=== PATIENT | male | born 1960 | race Caucasian/White ===

== ENCOUNTER 2016-10-31 12:18 | Emergency (ER) | payer OTHER, MEDICAID ==
[~2016-10-31] VITALS: Ht 188 cm; Wt 111.1 kg
[~2016-10-31 12:18] MED LIST: ACETTAB85 PO; ASPI81TA27 PO; DOCU150L3 PO; RANO500T2 PO; ROSU10TA16 PO
[2016-10-31 12:47] VITALS: BP 185/96
== END 2016-10-31 13:38 | disposition home or self-care (01) ==
LOC: ER 12:33
DX: Z46.6 Encounter for fitting and adjustment of urinary device (principal); C62.90 Malignant neoplasm of unspecified testis, unspecified whether descended or undescended; E11.622 Type 2 diabetes mellitus with other skin ulcer; L89.93 Pressure ulcer of unspecified site, stage 3; F12.10 Cannabis abuse, uncomplicated; Z88.1 Allergy status to other antibiotic agents; Z88.0 Allergy status to penicillin; Z88.6 Allergy status to analgesic agent

== ENCOUNTER 2017-06-20 19:47 | Emergency (ER) | payer OTHER, MEDICAID ==
[~2017-06-20] VITALS: Ht 188 cm; Wt 113.4 kg
[2017-06-20 20:15] VITALS: BP 133/79
[2017-06-20 20:45] LABS: Basophils # (auto) 0 uL; Basophils % (auto) 0.1 % (0.0-2.0); CONDITION Y; Eosinophils # (auto) 0.2 uL; Hematocrit 48.9 % (41.0-53.0); Hemoglobin 16.6 g/dL (13.5-17.5); Lymphocytes # (auto) 1.4 uL; Lymphocytes % (auto) 8.1 % (10.0-50.0); Mean Corpuscular Hgb Conc. 33.9 g/dL (32.0-36.0); Mean Corpuscular Volume 91.4 fL (80.0-100.0); Mean Platelet Volume 7.8 fL (6.9-10.8); Monocytes # (auto) 0.5 uL; Neutrophils # (auto) 15.3 uL; Neutrophils % (auto) 87.8 % (37.0-80.0); Platelet Count (auto) 298 10^3/uL (140-450); Red Cell Distribution Width 14.9 % (11.8-14.3); White Blood Cell 17.5 10^3/uL (4.4-10.8)
[2017-06-20 21:07] LABS: Albumin 3.4 g/dL (3.4-5.0); BUN/Creatinine Ratio 13.2; Bilirubin, Total 0.4 mg/dL (0.2-1.0); Calcium 9.2 mg/dL (8.5-10.1); Potassium 4.1 mmol/L (3.5-5.1); Total Protein 8.6 g/dL (6.4-8.2)
[2017-06-21] MEDS ORDERED: GABA600T PO (23:52)
[2017-06-21] MEDS ORDERED: PERCOT PO (23:52)
== END 2017-06-21 06:39 | disposition left against medical advice (07) ==
LOC: ER 19:59
DX: E11.621 Type 2 diabetes mellitus with foot ulcer (principal); Z53.21 Procedure and treatment not carried out due to patient leaving prior to being seen by health care provider
CPT/HCPCS: 36415; 73630; 80053; 85025

== ENCOUNTER 2018-01-23 23:18 | Emergency (ER) | payer OTHER, MEDICAID ==
[~2018-01-23] VITALS: Ht 188 cm; Wt 116.1 kg
[~2018-01-23 23:18] MED LIST changes: -ACETTAB85 PO; +GABA600T PO; +METF-370 PO; +PERCOT PO; -RANO500T2 PO
[2018-01-24 04:00] VITALS: BP 132/78
== END 2018-01-24 06:05 | disposition home or self-care (01) ==
LOC: ER 23:18
DX: R10.9 Unspecified abdominal pain (principal); Z46.6 Encounter for fitting and adjustment of urinary device; Z85.47 Personal history of malignant neoplasm of testis; Z88.1 Allergy status to other antibiotic agents; Z88.0 Allergy status to penicillin
CPT/HCPCS: 51702

== ENCOUNTER 2018-08-29 13:20 | Inpatient (IN) | payer OTHER, MEDICAID ==
[~2018-08-29] VITALS: Ht 188 cm; Wt 79.9 kg
[~2018-08-29 13:20] MED LIST changes: +APIX5TAB PO; +ATOR40TA52 PO; -ROSU10TA16 PO
[2018-08-29 15:27] LABS: Basophils # (auto) 0 uL; Basophils % (auto) 0.5 % (0.0-2.0); Eosinophils # (auto) 0.2 uL; Eosinophils % (auto) 2.5 % (0.0-7.0); Hematocrit 39.2 % (41.0-53.0); Hemoglobin 13.1 g/dL (13.5-17.5); Lymphocytes # (auto) 1.8 uL; Lymphocytes % (auto) 20.1 % (10.0-50.0); Mean Corpuscular Hemoglobin 28.8 pg (28.0-32.0); Mean Corpuscular Hgb Conc. 33.4 g/dL (32.0-36.0); Mean Corpuscular Volume 86.4 fL (80.0-100.0); Monocytes # (auto) 0.5 uL; Monocytes % (auto) 5.8 % (0.0-12.0); Neutrophils # (auto) 6.4 uL; Neutrophils % (auto) 71.1 % (37.0-80.0); Nucleated Red Blood Cells % 0.1 %; Platelet Count (auto) 332 10^3/uL (140-450); Red Blood Cells 4.54 10^6/uL (4.5-5.90); Red Cell Distribution Width 15.2 % (11.8-14.3)
[2018-08-29 15:33] LABS: Albumin 2.3 g/dL (3.4-5.0); BUN/Creatinine Ratio 15.2; Potassium 4.3 mmol/L (3.5-5.1)
[2018-08-29 15:34] LABS: Bilirubin, Total 0.2 mg/dL (0.2-1.0); Total Protein 7.5 g/dL (6.4-8.2)
[2018-08-29 15:41] LABS: Urine Bacteria NONE SEEN /hpf (None Seen); Urine Blood Negative /uL (Negative); Urine Mucus FEW (None Seen); Urine Specific Gravity 1.024 (1.001-1.035); Urine WBC 3 /hpf (0 - 3)
[2018-08-29] MEDS: SODIUM CHLORIDE 0.9% 1,000 ML IV SCH (16:04)
[2018-08-29 16:08] VITALS: BP 118/62
[2018-08-29 16:11] LABS: Lactic Acid w/Reflex 2.5 mmol/L (0.4-2.0)
[2018-08-29] MEDS ORDERED: VANCOMYCIN 1GM/250ML 250 ML IV ONE ×2 (16:14→16:15)
[2018-08-29] MEDS ORDERED: VANCOMYCIN PER PHARMACY 0 MG IV SCH (16:15)
[2018-08-29] MEDS ORDERED: ERTAPENEM SOD INJ 1 GM in SODIUM CHL 0.9% 50 ML IV ONE (16:15)
[2018-08-29] MEDS ORDERED: LACTULOSE 20Gm/30ML SOLN PO PRN (16:15)
[2018-08-29] MEDS ORDERED: ACETAMINOPHEN 500 MG TAB PO PRN (16:15)
[2018-08-29] MEDS ORDERED: NITROGLYCERIN 0.4 MG SL TAB SL PRN (16:15)
[2018-08-29] MEDS ORDERED: LORazepam 0.5 MG TAB PO PRN (16:15)
[2018-08-29] MEDS ORDERED: PROMETHAZINE HCL 25 MG/ML 1ML IV PRN (16:15)
[2018-08-29] MEDS ORDERED: traMADol HCL 50 MG TAB PO PRN (16:15)
[2018-08-29] MEDS ORDERED: DEXTROSE (50%) 50ML SYRG IV PRN (16:15)
[2018-08-29] MEDS ORDERED: MORPHINE SULFATE 4 MG/ML SYR/VIAL IV PRN ×2 (16:15)
[2018-08-29] MEDS ORDERED: TEMAZEPAM 15 MG CAP PO PRN (16:15)
[2018-08-29] MEDS ORDERED: MILK OF MAGNESIA 30ML SUSP PO ONE (16:45)
[2018-08-29] MEDS: ACCU-CHEK COMFORT CURVE STRIP VI SCH ×2 (17:00→21:49)
[2018-08-29] MEDS: InsuLIN REG 1unit/0.01ml Soln (100units/ml) SC SCH ×2 (17:00→21:49)
[2018-08-29] MEDS ORDERED: GABA600T PO (18:54)
[2018-08-29] MEDS ORDERED: METF-370 PO (18:54)
[2018-08-29 20:00] VITALS: BP 113/61
[2018-08-29] MEDS ORDERED: INFLUENZA QUAD 2018-2019 0.5 ML SYRG IM ONE (20:15)
[2018-08-29] MEDS ORDERED: PNEUMOCOCCAL VACC POLYS 25 MCG/0.5 ML VIAL IM ONE (20:15)
[2018-08-29] MEDS: ATORVASTATIN 20 MG TAB PO SCH (21:48)
[2018-08-29] MEDS: APIXABAN 5 MG TAB PO SCH (21:48)
[2018-08-29] MEDS: GABAPENTIN 300 MG CAP PO SCH (21:48)
[2018-08-29] MEDS: OXYCODONE W/ ACETAMINOPHEN 5/325MG TABLET PO PRN (21:49)
[2018-08-29] MEDS: VANCOMYCIN 1,250 MG in D5W 5% 250 ML IV SCH (21:50)
[2018-08-29 21:59] VITALS: BP 113/61
[2018-08-29] MEDS ORDERED: APIXABAN 2.5 MG TAB PO SCH (22:00)
[2018-08-30] MEDS: VANCOMYCIN 1,250 MG in D5W 5% 250 ML IV SCH ×3 (00:15→16:36)
[2018-08-30] MEDS: SODIUM CHLORIDE 0.9% 1,000 ML IV SCH ×3 (02:13→22:04)
[2018-08-30 04:44] VITALS: BP 132/50
[2018-08-30 06:01] LABS: Basophils # (auto) 0 uL; Basophils % (auto) 0.3 % (0.0-2.0); Eosinophils # (auto) 0.2 uL; Eosinophils % (auto) 2.8 % (0.0-7.0); Hematocrit 38.6 % (41.0-53.0); Hemoglobin 12.9 g/dL (13.5-17.5); Lymphocytes # (auto) 0.8 uL; Lymphocytes % (auto) 11.4 % (10.0-50.0); Mean Corpuscular Hemoglobin 28.6 pg (28.0-32.0); Mean Corpuscular Hgb Conc. 33.3 g/dL (32.0-36.0); Mean Corpuscular Volume 85.7 fL (80.0-100.0); Monocytes # (auto) 0.5 uL; Monocytes % (auto) 7.4 % (0.0-12.0); Neutrophils # (auto) 5.8 uL; Neutrophils % (auto) 78.1 % (37.0-80.0); Platelet Count (auto) 297 10^3/uL (140-450); Red Blood Cells 4.51 10^6/uL (4.5-5.90); Red Cell Distribution Width 15.2 % (11.8-14.3); White Blood Cell 7.4 10^3/uL (4.4-10.8)
[2018-08-30 06:26] LABS: Chloride 103 mmol/L (98-107); Potassium 4.5 mmol/L (3.5-5.1); Sodium 138 mmol/L (136-145)
[2018-08-30 06:27] LABS: Alkaline Phosphatase 84 U/L (45-117); Anion Gap 5 (5-15); Aspartate Aminotransferase 25 U/L (15-37); BUN/Creatinine Ratio 16.7; Blood Urea Nitrogen 10 mg/dL (7-18); Carbon Dioxide 30 mmol/L (21-32); GFR African American 179 mL/min; GFR Non-African American 148 mL/min; Glucose 142 mg/dL (74-106)
[2018-08-30 06:28] LABS: Alanine Aminotransferase 94 U/L (16-61); Albumin 2.2 g/dL (3.4-5.0); Bilirubin, Total 0.3 mg/dL (0.2-1.0); Total Protein 7.2 g/dL (6.4-8.2)
[2018-08-30] MEDS: ACCU-CHEK COMFORT CURVE STRIP VI SCH ×4 (06:54→22:00)
[2018-08-30] MEDS: InsuLIN REG 1unit/0.01ml Soln (100units/ml) SC SCH ×4 (06:54→22:00)
[2018-08-30 08:00] VITALS: BP 128/60
[2018-08-30 09:00] VITALS: BP 128/60
[2018-08-30] MEDS ORDERED: ENOXAPARIN SOD 40 MG/0.4 ML SYRINGE SC SCH (10:00)
[2018-08-30] MEDS: ERTAPENEM SOD INJ 1 GM in SODIUM CHL 0.9% 50 ML IV SCH (10:38)
[2018-08-30] MEDS: MILK OF MAGNESIA 30ML SUSP PO SCH (10:38)
[2018-08-30] MEDS: OXYCODONE W/ ACETAMINOPHEN 5/325MG TABLET PO PRN ×2 (10:38→19:09)
[2018-08-30] MEDS: PANTOPRAZOLE 40 MG TAB PO SCH (10:39)
[2018-08-30] MEDS: ASPirin-EC 81 mg tab PO SCH (10:39)
[2018-08-30] MEDS: DOCUSATE SOD 100 MG CAP PO SCH (10:39)
[2018-08-30] MEDS: GABAPENTIN 300 MG CAP PO SCH ×2 (10:41→22:00)
[2018-08-30 13:00] VITALS: BP 105/66
[2018-08-30 17:00] VITALS: BP 105/47
[2018-08-30] MEDS: metFORMIN HYDROCHLORIDE 500 MG TAB PO SCH (19:10)
[2018-08-30] MEDS: glyBURIDE 5 MG TAB PO SCH (19:11)
[2018-08-30 22:00] VITALS: BP 98/54
[2018-08-30] MEDS: APIXABAN 5 MG TAB PO SCH (22:00)
[2018-08-30] MEDS: ATORVASTATIN 20 MG TAB PO SCH (22:00)
[2018-08-31 05:03] VITALS: BP 123/64
[2018-08-31] MEDS: VANCOMYCIN 1,250 MG in D5W 5% 250 ML IV SCH (06:00)
[2018-08-31] MEDS: ACCU-CHEK COMFORT CURVE STRIP VI SCH ×4 (06:36→21:19)
[2018-08-31] MEDS: InsuLIN REG 1unit/0.01ml Soln (100units/ml) SC SCH ×4 (06:36→22:16)
[2018-08-31] MEDS: glyBURIDE 5 MG TAB PO SCH ×3 (07:09→18:20)
[2018-08-31] MEDS: metFORMIN HYDROCHLORIDE 500 MG TAB PO SCH ×2 (07:09→18:00)
[2018-08-31 08:30] VITALS: BP 127/67
[2018-08-31] MEDS: SODIUM CHLORIDE 0.9% 1,000 ML IV SCH ×2 (08:50→18:05)
[2018-08-31] MEDS: DOCUSATE SOD 100 MG CAP PO SCH (09:13)
[2018-08-31] MEDS: ASPirin-EC 81 mg tab PO SCH (09:13)
[2018-08-31] MEDS: GABAPENTIN 300 MG CAP PO SCH ×2 (09:14→22:16)
[2018-08-31] MEDS: MILK OF MAGNESIA 30ML SUSP PO SCH (09:14)
[2018-08-31] MEDS: PANTOPRAZOLE 40 MG TAB PO SCH (09:14)
[2018-08-31] MEDS: ERTAPENEM SOD INJ 1 GM in SODIUM CHL 0.9% 50 ML IV SCH (09:15)
[2018-08-31] MEDS: OXYCODONE W/ ACETAMINOPHEN 5/325MG TABLET PO PRN ×2 (09:23→19:45)
[2018-08-31] MEDS: VANCOMYCIN 1GM/250ML 250 ML IV SCH ×2 (11:46→18:04)
[2018-08-31 12:19] VITALS: BP 106/67
[2018-08-31 17:32] VITALS: BP 109/73
[2018-08-31 22:00] VITALS: BP 127/59
[2018-08-31] MEDS: ATORVASTATIN 20 MG TAB PO SCH (22:16)
[2018-08-31] MEDS: APIXABAN 5 MG TAB PO SCH (22:16)
[2018-09-01] MEDS: VANCOMYCIN 1GM/250ML 250 ML IV SCH ×3 (02:29→21:40)
[2018-09-01] MEDS: SODIUM CHLORIDE 0.9% 1,000 ML IV SCH ×2 (05:00→14:04)
[2018-09-01 05:46] VITALS: BP 108/57
[2018-09-01] MEDS: metFORMIN HYDROCHLORIDE 500 MG TAB PO SCH ×2 (06:17→17:33)
[2018-09-01] MEDS: ACCU-CHEK COMFORT CURVE STRIP VI SCH ×4 (06:22→21:41)
[2018-09-01] MEDS: InsuLIN REG 1unit/0.01ml Soln (100units/ml) SC SCH ×4 (06:22→21:41)
[2018-09-01] MEDS: glyBURIDE 5 MG TAB PO SCH ×2 (06:22→17:33)
[2018-09-01 08:10] VITALS: BP 107/72
[2018-09-01 09:46] LABS: INR 0.98 (0.9-1.15); Prothrombin Time 10.5 sec (9.27-12.13)
[2018-09-01] MEDS: ERTAPENEM SOD INJ 1 GM in SODIUM CHL 0.9% 50 ML IV SCH (10:00)
[2018-09-01] MEDS: MILK OF MAGNESIA 30ML SUSP PO SCH (10:44)
[2018-09-01] MEDS: GABAPENTIN 300 MG CAP PO SCH ×2 (10:45→21:41)
[2018-09-01] MEDS: DOCUSATE SOD 100 MG CAP PO SCH (10:45)
[2018-09-01] MEDS: PANTOPRAZOLE 40 MG TAB PO SCH (10:45)
[2018-09-01] MEDS: ASPirin-EC 81 mg tab PO SCH (10:45)
[2018-09-01 12:07] VITALS: BP 111/66
[2018-09-01] MEDS: OXYCODONE W/ ACETAMINOPHEN 5/325MG TABLET PO PRN ×2 (12:40→20:35)
[2018-09-01] MEDS ORDERED: LIDOCAINE 1% (LOCAL ANESTH.) PF 5ml SDV ID ONE (17:30)
[2018-09-01 18:12] VITALS: BP 132/63
[2018-09-01] MEDS: APIXABAN 5 MG TAB PO SCH (21:40)
[2018-09-01] MEDS: SODIUM CHLOR 0.9% PF (SALINE LOCK) 10ML VIAL/SYR IV SCH (21:40)
[2018-09-01] MEDS: ATORVASTATIN 20 MG TAB PO SCH (21:41)
[2018-09-01 22:00] VITALS: BP 116/62
[2018-09-02] MEDS: SODIUM CHLORIDE 0.9% 1,000 ML IV SCH ×3 (03:10→20:04)
[2018-09-02 05:00] VITALS: BP 122/71
[2018-09-02] MEDS: VANCOMYCIN 1GM/250ML 250 ML IV SCH ×3 (05:44→22:44)
[2018-09-02] MEDS: ACCU-CHEK COMFORT CURVE STRIP VI SCH ×4 (06:00→21:41)
[2018-09-02] MEDS: InsuLIN REG 1unit/0.01ml Soln (100units/ml) SC SCH ×4 (06:00→21:40)
[2018-09-02] MEDS: OXYCODONE W/ ACETAMINOPHEN 5/325MG TABLET PO PRN ×2 (06:01→21:15)
[2018-09-02] MEDS: metFORMIN HYDROCHLORIDE 500 MG TAB PO SCH ×2 (06:24→18:00)
[2018-09-02] MEDS: glyBURIDE 5 MG TAB PO SCH ×2 (06:24→18:00)
[2018-09-02 06:28] LABS: Basophils # (auto) 0 uL; Basophils % (auto) 0.5 % (0.0-2.0); Eosinophils # (auto) 0.1 uL; Hematocrit 36.8 % (41.0-53.0); Hemoglobin 12.2 g/dL (13.5-17.5); Lymphocytes # (auto) 1.1 uL; Lymphocytes % (auto) 15.6 % (10.0-50.0); Mean Corpuscular Hemoglobin 28.2 pg (28.0-32.0); Mean Corpuscular Hgb Conc. 33.1 g/dL (32.0-36.0); Monocytes # (auto) 0.6 uL; Monocytes % (auto) 8.4 % (0.0-12.0); Neutrophils # (auto) 5.3 uL; Neutrophils % (auto) 73.5 % (37.0-80.0); Platelet Count (auto) 300 10^3/uL (140-450); Red Blood Cells 4.33 10^6/uL (4.5-5.90); Red Cell Distribution Width 15.3 % (11.8-14.3); White Blood Cell 7.2 10^3/uL (4.4-10.8)
[2018-09-02 06:50] LABS: BUN/Creatinine Ratio 20.8; Calcium 8.8 mg/dL (8.5-10.1); Potassium 4.3 mmol/L (3.5-5.1)
[2018-09-02 09:00] VITALS: BP 109/58
[2018-09-02] MEDS: GABAPENTIN 300 MG CAP PO SCH ×2 (10:21→21:40)
[2018-09-02] MEDS: PANTOPRAZOLE 40 MG TAB PO SCH (10:22)
[2018-09-02] MEDS: ERTAPENEM SOD INJ 1 GM in SODIUM CHL 0.9% 50 ML IV SCH (10:22)
[2018-09-02] MEDS: MILK OF MAGNESIA 30ML SUSP PO SCH (10:22)
[2018-09-02] MEDS: DOCUSATE SOD 100 MG CAP PO SCH (10:22)
[2018-09-02] MEDS: ASPirin-EC 81 mg tab PO SCH (10:22)
[2018-09-02] MEDS: SODIUM CHLOR 0.9% PF (SALINE LOCK) 10ML VIAL/SYR IV SCH ×2 (10:23→21:42)
[2018-09-02 12:58] VITALS: BP 121/62
[2018-09-02 17:00] VITALS: BP 103/64
[2018-09-02] MEDS: ATORVASTATIN 20 MG TAB PO SCH (21:39)
[2018-09-02 21:40] VITALS: BP 133/73
[2018-09-02] MEDS: APIXABAN 5 MG TAB PO SCH (21:40)
[2018-09-03] MEDS: VANCOMYCIN 1GM/250ML 250 ML IV SCH ×3 (06:27→21:35)
[2018-09-03] MEDS: SODIUM CHLORIDE 0.9% 1,000 ML IV SCH ×2 (06:32→16:04)
[2018-09-03] MEDS: ACCU-CHEK COMFORT CURVE STRIP VI SCH ×4 (06:35→21:39)
[2018-09-03] MEDS: metFORMIN HYDROCHLORIDE 500 MG TAB PO SCH ×2 (06:35→17:19)
[2018-09-03] MEDS: glyBURIDE 5 MG TAB PO SCH ×2 (06:36→17:18)
[2018-09-03] MEDS: OXYCODONE W/ ACETAMINOPHEN 5/325MG TABLET PO PRN ×2 (06:47→20:05)
[2018-09-03] MEDS: InsuLIN REG 1unit/0.01ml Soln (100units/ml) SC SCH ×4 (06:48→21:39)
[2018-09-03 09:00] VITALS: BP 121/62
[2018-09-03] MEDS: DOCUSATE SOD 100 MG CAP PO SCH (09:58)
[2018-09-03] MEDS: GABAPENTIN 300 MG CAP PO SCH ×2 (09:58→21:38)
[2018-09-03] MEDS: SODIUM CHLOR 0.9% PF (SALINE LOCK) 10ML VIAL/SYR IV SCH ×2 (09:59→21:36)
[2018-09-03] MEDS: ERTAPENEM SOD INJ 1 GM in SODIUM CHL 0.9% 50 ML IV SCH (09:59)
[2018-09-03] MEDS: ASPirin-EC 81 mg tab PO SCH (09:59)
[2018-09-03] MEDS: PANTOPRAZOLE 40 MG TAB PO SCH (10:00)
[2018-09-03] MEDS: MILK OF MAGNESIA 30ML SUSP PO SCH (10:00)
[2018-09-03 13:00] VITALS: BP 114/56
[2018-09-03 17:00] VITALS: BP 101/58
[2018-09-03] MEDS: ATORVASTATIN 20 MG TAB PO SCH (21:38)
[2018-09-03] MEDS: APIXABAN 5 MG TAB PO SCH (21:38)
[2018-09-03 22:00] VITALS: BP 103/63
[2018-09-04] MEDS: SODIUM CHLORIDE 0.9% 1,000 ML IV SCH ×3 (03:14→23:05)
[2018-09-04 05:42] VITALS: BP 110/62
[2018-09-04] MEDS: metFORMIN HYDROCHLORIDE 500 MG TAB PO SCH ×2 (06:16→17:37)
[2018-09-04] MEDS: VANCOMYCIN 1GM/250ML 250 ML IV SCH ×2 (06:16→14:45)
[2018-09-04] MEDS: glyBURIDE 5 MG TAB PO SCH ×2 (06:17→17:38)
[2018-09-04] MEDS: InsuLIN REG 1unit/0.01ml Soln (100units/ml) SC SCH ×4 (06:18→23:22)
[2018-09-04] MEDS: ACCU-CHEK COMFORT CURVE STRIP VI SCH ×4 (06:18→23:04)
[2018-09-04 09:00] VITALS: BP 114/69
[2018-09-04] MEDS: MILK OF MAGNESIA 30ML SUSP PO SCH (09:43)
[2018-09-04] MEDS: OXYCODONE W/ ACETAMINOPHEN 5/325MG TABLET PO PRN ×2 (09:44→19:47)
[2018-09-04] MEDS: PANTOPRAZOLE 40 MG TAB PO SCH (09:44)
[2018-09-04] MEDS: GABAPENTIN 300 MG CAP PO SCH ×2 (09:44→23:04)
[2018-09-04] MEDS: DOCUSATE SOD 100 MG CAP PO SCH (09:44)
[2018-09-04] MEDS: ASPirin-EC 81 mg tab PO SCH (09:44)
[2018-09-04] MEDS: ERTAPENEM SOD INJ 1 GM in SODIUM CHL 0.9% 50 ML IV SCH (09:45)
[2018-09-04] MEDS: SODIUM CHLOR 0.9% PF (SALINE LOCK) 10ML VIAL/SYR IV SCH ×2 (10:11→23:03)
[2018-09-04 13:00] VITALS: BP 150/81
[2018-09-04] MEDS ORDERED: VANCOMYCIN 1GM/250ML 250 ML IV SCH (14:00)
[2018-09-04] MEDS ORDERED: VANCOMYCIN 1GM/250ML 250 ML IV ONE (14:47)
[2018-09-04 17:00] VITALS: BP 112/66
[2018-09-04 23:02] VITALS: BP 100/57
[2018-09-04] MEDS: ATORVASTATIN 20 MG TAB PO SCH (23:04)
[2018-09-04] MEDS: APIXABAN 5 MG TAB PO SCH (23:04)
[2018-09-05] MEDS ORDERED: VANCOMYCIN 1GM/250ML 250 ML IV ONE (00:30)
[2018-09-05] MEDS: VANCOMYCIN 1GM/250ML 250 ML IV SCH ×3 (00:36→17:08)
[2018-09-05 05:37] VITALS: BP 107/59
[2018-09-05] MEDS: glyBURIDE 5 MG TAB PO SCH ×2 (07:00→17:09)
[2018-09-05] MEDS: InsuLIN REG 1unit/0.01ml Soln (100units/ml) SC SCH ×4 (07:00→21:25)
[2018-09-05] MEDS: metFORMIN HYDROCHLORIDE 500 MG TAB PO SCH ×2 (07:04→17:09)
[2018-09-05] MEDS: ACCU-CHEK COMFORT CURVE STRIP VI SCH ×4 (07:05→21:10)
[2018-09-05] MEDS: SODIUM CHLORIDE 0.9% 1,000 ML IV SCH ×2 (08:04→18:04)
[2018-09-05 09:00] VITALS: BP 120/67
[2018-09-05] MEDS: ERTAPENEM SOD INJ 1 GM in SODIUM CHL 0.9% 50 ML IV SCH (10:00)
[2018-09-05] MEDS: SODIUM CHLOR 0.9% PF (SALINE LOCK) 10ML VIAL/SYR IV SCH ×2 (10:08→21:08)
[2018-09-05] MEDS: DOCUSATE SOD 100 MG CAP PO SCH (10:08)
[2018-09-05] MEDS: ASPirin-EC 81 mg tab PO SCH (10:08)
[2018-09-05] MEDS: MILK OF MAGNESIA 30ML SUSP PO SCH (10:08)
[2018-09-05] MEDS: GABAPENTIN 300 MG CAP PO SCH ×2 (10:08→21:09)
[2018-09-05] MEDS: PANTOPRAZOLE 40 MG TAB PO SCH (10:08)
[2018-09-05] MEDS ORDERED: MORPHINE SULFATE 10 MG/ML INJ 1ML SDV IV PRN ×2 (10:15)
[2018-09-05 10:20] LABS: BUN/Creatinine Ratio 28.6; Calcium 9.1 mg/dL (8.5-10.1); Potassium 4.2 mmol/L (3.5-5.1)
[2018-09-05 13:00] VITALS: BP 121/50
[2018-09-05] MEDS: OXYCODONE W/ ACETAMINOPHEN 5/325MG TABLET PO PRN (16:20)
[2018-09-05 17:00] VITALS: BP 111/75
[2018-09-05] MEDS: ATORVASTATIN 20 MG TAB PO SCH (21:09)
[2018-09-05] MEDS: APIXABAN 5 MG TAB PO SCH (21:09)
[2018-09-05 22:00] VITALS: BP 129/62
[2018-09-06] MEDS: VANCOMYCIN 1GM/250ML 250 ML IV SCH ×2 (02:06→09:19)
[2018-09-06] MEDS: SODIUM CHLORIDE 0.9% 1,000 ML IV SCH (04:04)
[2018-09-06 05:26] VITALS: BP 102/59
[2018-09-06] MEDS: metFORMIN HYDROCHLORIDE 500 MG TAB PO SCH (06:44)
[2018-09-06] MEDS: InsuLIN REG 1unit/0.01ml Soln (100units/ml) SC SCH ×2 (06:45→11:58)
[2018-09-06] MEDS: ACCU-CHEK COMFORT CURVE STRIP VI SCH ×2 (06:45→11:58)
[2018-09-06] MEDS: glyBURIDE 5 MG TAB PO SCH (06:45)
[2018-09-06 08:55] VITALS: BP 112/68
[2018-09-06] MEDS: PANTOPRAZOLE 40 MG TAB PO SCH (09:19)
[2018-09-06] MEDS: GABAPENTIN 300 MG CAP PO SCH (09:20)
[2018-09-06] MEDS: ASPirin-EC 81 mg tab PO SCH (09:20)
[2018-09-06] MEDS: DOCUSATE SOD 100 MG CAP PO SCH (09:20)
[2018-09-06] MEDS: MILK OF MAGNESIA 30ML SUSP PO SCH (09:20)
[2018-09-06] MEDS: SODIUM CHLOR 0.9% PF (SALINE LOCK) 10ML VIAL/SYR IV SCH (11:13)
[2018-09-06] MEDS: OXYCODONE W/ ACETAMINOPHEN 5/325MG TABLET PO PRN (11:13)
[2018-09-06] MEDS: ERTAPENEM SOD INJ 1 GM in SODIUM CHL 0.9% 50 ML IV SCH (12:42)
[2018-09-06 13:00] VITALS: BP 118/52
[2018-09-06 16:20] VITALS: BP 118/52
== END 2018-09-06 19:07 | disposition home or self-care (01) | DRG 592 ==
LOC: ER 13:20 → TELE 16:08 → TELE-CENTR 17:51
PROVIDERS: ADMIT Internal Medicine; ATTEND Internal Medicine
DX: L89.224 Pressure ulcer of left hip, stage 4 (principal); E43 Unspecified severe protein-calorie malnutrition; L03.115 Cellulitis of right lower limb; N39.0 Urinary tract infection, site not specified; L97.429 Non-pressure chronic ulcer of left heel and midfoot with unspecified severity; G82.20 Paraplegia, unspecified; L97.129 Non-pressure chronic ulcer of left thigh with unspecified severity; M86.9 Osteomyelitis, unspecified; L03.116 Cellulitis of left lower limb; L03.032 Cellulitis of left toe; F17.210 Nicotine dependence, cigarettes, uncomplicated; K59.00 Constipation, unspecified; F41.9 Anxiety disorder, unspecified; E66.9 Obesity, unspecified; E11.622 Type 2 diabetes mellitus with other skin ulcer; E11.621 Type 2 diabetes mellitus with foot ulcer; L97.519 Non-pressure chronic ulcer of other part of right foot with unspecified severity; F12.90 Cannabis use, unspecified, uncomplicated; E11.69 Type 2 diabetes mellitus with other specified complication; L97.529 Non-pressure chronic ulcer of other part of left foot with unspecified severity; I10 Essential (primary) hypertension; E78.5 Hyperlipidemia, unspecified; F32.9 Major depressive disorder, single episode, unspecified; Y83.8 Other surgical procedures as the cause of abnormal reaction of the patient, or of later complication, without mention of misadventure at the time of the procedure; L08.9 Local infection of the skin and subcutaneous tissue, unspecified; L89.92 Pressure ulcer of unspecified site, stage 2; Z80.6 Family history of leukemia; Z85.118 Personal history of other malignant neoplasm of bronchus and lung; Z85.47 Personal history of malignant neoplasm of testis; Z86.718 Personal history of other venous thrombosis and embolism; W34.00XA Accidental discharge from unspecified firearms or gun, initial encounter; Z99.3 Dependence on wheelchair; Z23 Encounter for immunization; Z88.8 Allergy status to other drugs, medicaments and biological substances; Z88.1 Allergy status to other antibiotic agents; Z88.0 Allergy status to penicillin; Z79.899 Other long term (current) drug therapy; Z91.041 Radiographic dye allergy status; Y92.89 Other specified places as the place of occurrence of the external cause; Z68.22 Body mass index [BMI] 22.0-22.9, adult
CPT/HCPCS: 36415; 36569; 71045; 72192; 73660; 78315; 80048; 80053; 80202; 81001; 82962; 83036; 83605; 83735; 85025; 85610; 85652; 87040; 87077; 87081; 87086; 87186; 87205; 93926; 94761; 96365; 96367; 96372; G0378; J1335; J1815; J7060

== ENCOUNTER 2019-03-10 09:53 | Emergency (ER) | payer OTHER, MEDICAID ==
[~2019-03-10] VITALS: Ht 188 cm; Wt 98.9 kg
[2019-03-10 10:49] LABS: Basophils # (auto) 0 uL; Hemoglobin 8.4 g/dL (13.5-17.5); Lymphocytes # (auto) 1.4 uL; Monocytes # (auto) 0.6 uL; White Blood Cell 8.2 10^3/uL (4.4-10.8)
[2019-03-10 10:51] LABS: Alanine Aminotransferase 73 U/L (16-61); Albumin 1.6 g/dL (3.4-5.0); Anion Gap 7 (5-15); Aspartate Aminotransferase 33 U/L (15-37); BUN/Creatinine Ratio 14.8; Blood Urea Nitrogen 8 mg/dL (7-18); Carbon Dioxide 28 mmol/L (21-32); Chloride 100 mmol/L (98-107); GFR African American 202 mL/min; GFR Non-African American 167 mL/min; Glucose 166 mg/dL (74-106); Sodium 135 mmol/L (136-145)
[2019-03-10 10:52] LABS: Basophils % (auto) 0.2 % (0.0-2.0); Eosinophils # (auto) 0.1 uL; Eosinophils % (auto) 0.7 % (0.0-7.0); Hematocrit 26.7 % (41.0-53.0); Lymphocytes % (auto) 16.5 % (10.0-50.0); Mean Corpuscular Hgb Conc. 31.3 g/dL (32.0-36.0); Mean Corpuscular Volume 70.4 fL (80.0-100.0); Monocytes % (auto) 7.2 % (0.0-12.0); Neutrophils # (auto) 6.2 uL; Neutrophils % (auto) 75.4 % (37.0-80.0); Platelet Count (auto) 413 10^3/uL (140-450); Red Cell Distribution Width 19.6 % (11.8-14.3)
[2019-03-10 10:55] LABS: Alkaline Phosphatase 135 U/L (45-117); Bilirubin, Total 0.2 mg/dL (0.2-1.0); Total Protein 7.4 g/dL (6.4-8.2)
[2019-03-10] MEDS ORDERED: VANCOMYCIN 1GM/250ML 250 ML IV ONE (11:45)
[2019-03-10] MEDS ORDERED: metroNIDAZOLE 500MG/100ML 100 ML IV ONE (14:45)
[2019-03-10] MEDS ORDERED: ERTAPENEM SOD INJ 1 GM in SODIUM CHL 0.9% 50 ML IV ONE (14:45)
[2019-03-10 16:39] LABS: Lactic Acid w/Reflex 2.1 mmol/L (0.4-2.0)
[2019-03-10 17:30] VITALS: BP 121/63
[2019-03-10 17:31] LABS: Urine Bacteria MOD /hpf (None Seen); Urine Blood Negative /uL (Negative); Urine Specific Gravity 1.026 (1.001-1.035); Urine WBC 32 /hpf (0 - 3)
== END 2019-03-10 17:55 | disposition short-term general hospital (02) ==
LOC: ER 09:58
DX: M46.26 Osteomyelitis of vertebra, lumbar region (principal); L89.143 Pressure ulcer of left lower back, stage 3; G82.20 Paraplegia, unspecified; E11.9 Type 2 diabetes mellitus without complications; E78.5 Hyperlipidemia, unspecified; I10 Essential (primary) hypertension; F17.210 Nicotine dependence, cigarettes, uncomplicated; F12.10 Cannabis abuse, uncomplicated; Z46.6 Encounter for fitting and adjustment of urinary device; Z88.1 Allergy status to other antibiotic agents; Z79.899 Other long term (current) drug therapy
CPT/HCPCS: 36415; 72131; 73700; 80053; 81001; 83605; 83615; 84484; 85025; 87040; 93005; 96365; 96367; 96368; 99285; J1335; J3370; J3490

== ENCOUNTER → 2019-03-14 | Outpatient (CLI) | payer OTHER, MEDICAID | END | disposition home or self-care (01) | LOC: XY 07:30 | DX: L89.319 Pressure ulcer of right buttock, unspecified stage (principal); L89.329 Pressure ulcer of left buttock, unspecified stage; E11.622 Type 2 diabetes mellitus with other skin ulcer; D72.829 Elevated white blood cell count, unspecified; R50.9 Fever, unspecified | CPT/HCPCS: 78805; A9547 ==

== ENCOUNTER 2019-05-19 10:22 | Inpatient (IN) | payer OTHER, MEDICAID ==
[~2019-05-19] VITALS: Ht 188 cm; Wt 90.6 kg
[~2019-05-19 10:22] MED LIST changes: +ASPI-404 PO; -ASPI81TA27 PO
[2019-05-19] MEDS ORDERED: SODIUM CHLORIDE 0.9% 500 ML IV ONE (10:44)
[2019-05-19 11:01] LABS: Basophils # (auto) 0 uL; Eosinophils # (auto) 0.1 uL; Monocytes # (auto) 0.7 uL
[2019-05-19 11:03] LABS: Basophils % (auto) 0.5 % (0.0-2.0); Eosinophils % (auto) 0.7 % (0.0-7.0); Hematocrit 25.8 % (41.0-53.0); Lymphocytes # (auto) 1.9 uL; Mean Corpuscular Hemoglobin 22.2 pg (28.0-32.0); Mean Corpuscular Hgb Conc. 31.1 g/dL (32.0-36.0); Mean Corpuscular Volume 71.5 fL (80.0-100.0); Monocytes % (auto) 7.6 % (0.0-12.0); Neutrophils # (auto) 6.9 uL; Neutrophils % (auto) 71.2 % (37.0-80.0); Red Blood Cells 3.61 10^6/uL (4.5-5.90); White Blood Cell 9.7 10^3/uL (4.4-10.8)
[2019-05-19 11:09] LABS: Red Cell Distribution Width 23.2 % (11.8-14.3)
[2019-05-19 11:18] LABS: INR 1.05 (0.9-1.15); Partial Thromboplastin Time 29.4 sec (23.64-32.05)
[2019-05-19 11:28] LABS: Anion Gap 7 (5-15); Blood Urea Nitrogen 11 mg/dL (7-18); Calcium 9.2 mg/dL (8.5-10.1); Carbon Dioxide 25 mmol/L (21-32); Chloride 102 mmol/L (98-107); Glucose 152 mg/dL (74-106); Potassium 4.1 mmol/L (3.5-5.1); Sodium 134 mmol/L (136-145)
[2019-05-19 11:33] LABS: Alanine Aminotransferase 73 U/L (16-61); Alkaline Phosphatase 175 U/L (45-117); Aspartate Aminotransferase 28 U/L (15-37); Bilirubin, Total 0.4 mg/dL (0.2-1.0); GFR African American 220 mL/min; GFR Non-African American 182 mL/min; Total Protein 8.7 g/dL (6.4-8.2)
[2019-05-19 11:35] LABS: Platelet Count (auto) 461 10^3/uL (140-450)
[2019-05-19 11:37] LABS: Lactic Acid w/Reflex 2.5 mmol/L (0.4-2.0)
[2019-05-19 11:52] LABS: Urine Bacteria NONE SEEN /hpf (None Seen); Urine Blood Negative /uL (Negative); Urine Budding Yeast OCCASIONAL /hpf (None Seen); Urine Mucus FEW (None Seen); Urine Specific Gravity 1.015 (1.001-1.035); Urine WBC 25 /hpf (0 - 3)
[2019-05-19] MEDS ORDERED: ACETAMINOPHEN 500 MG TAB PO PRN (17:00)
[2019-05-19] MEDS ORDERED: MORPHINE SULFATE 4 MG/ML SYR/VIAL IV PRN (17:00)
[2019-05-19] MEDS ORDERED: PROMETHAZINE HCL 25 MG/ML 1ML IV PRN (17:00)
[2019-05-19] MEDS ORDERED: DEXTROSE (50%) 50ML SYRG IV PRN (17:00)
[2019-05-19] MEDS ORDERED: TEMAZEPAM 15 MG CAP PO PRN (17:00)
[2019-05-19] MEDS ORDERED: MORPHINE SULF INJ 2 MG/ML SYRINGE 1ML IV PRN (17:00)
[2019-05-19] MEDS ORDERED: cefTRIAXone 1GM/50ML D5W 50 ML IV ONE (17:00)
[2019-05-19] MEDS ORDERED: NITROGLYCERIN 0.4 MG SL TAB SL PRN (17:00)
[2019-05-19] MEDS: ACCU-CHEK COMFORT CURVE STRIP VI SCH ×2 (18:00→23:48)
[2019-05-19] MEDS: SODIUM CHLORIDE 0.9% 1,000 ML IV SCH (18:00)
--- NOTE | 2019-05-19 18:31 | NUR ---
Telemetry admit from ER ALEC GARCIA admitted to Telemetry unit after SBAR received. Patient oriented to MALENA TURNER RN primary RN, unit, room, bed, and unit policies regarding patient care and visiting hours. Patient now on continuous telemetry monitoring. Patient placed on bedside oxygen, weighed by bedscale and encouraged to call if they need something. All questions and concerns addressed, patient verbalized understanding.
[2019-05-19 18:45] VITALS: BP 114/69
--- NOTE | 2019-05-19 18:55 | NUR ---
Wound Care/Photos Wound Care provided. Wounds cleaned with wound cleanser and optifoam dressing applied. Wound photos taken at this time.
[2019-05-19] MEDS: InsuLIN REG 1unit/0.01ml Soln (100units/ml) SC SCH ×2 (18:56→22:00)
--- NOTE | 2019-05-19 19:37 | NUR ---
Closing Shift Note Patient resting in bed. Patient denies pain. Patient shows no signs or symptoms of distress or shortness of breath. Will endorse care to the riding coach RN.
[2019-05-19 19:39] LABS: Hemoglobin 8.1 g/dL (13.5-17.5)
[2019-05-19 19:41] LABS: Hematocrit 27.2 % (41.0-53.0)
--- NOTE | 2019-05-19 19:55 | NUR ---
Opening Shift Note Pt resting in bed with resp rate even and unlabored. No s/s of any distress noted at this time. POC discussed with pt including paraplegia and wound care and pt verbalizes understanding. Bed is low, wheels are locked, and call light is with reach. Bed alarm is set for pt safety. Will continue to monitor pt q 1 hr and prn.
[2019-05-19 22:00] VITALS: BP 106/60
[2019-05-19] MEDS ORDERED: OXYCODONE W/ ACETAMINOPHEN 5/325MG TABLET PO PRN (22:00)
[2019-05-19] MEDS ORDERED: ATORVASTATIN 20 MG TAB PO SCH (22:00)
[2019-05-19] MEDS ORDERED: GABAPENTIN PO SCH (22:00)
[2019-05-19] MEDS: CLINDAMYCIN 300MG IV 50 ML IV SCH (23:46)
[2019-05-19] MEDS: GABAPENTIN 100 MG CAP PO SCH (23:47)
[2019-05-19] MEDS: GABAPENTIN 400 MG CAP PO SCH (23:48)
[2019-05-20] MEDS: DOCUSATE SOD 100 MG CAP PO SCH ×2 (00:40→10:00)
[2019-05-20 01:39] LABS: Hemoglobin 8.1 g/dL (13.5-17.5)
[2019-05-20] MEDS: SODIUM CHLORIDE 0.9% 1,000 ML IV SCH (02:56)
[2019-05-20 05:00] VITALS: BP 108/61
--- NOTE | 2019-05-20 06:00 | NUR ---
[facility] SWAB SENT
[2019-05-20] MEDS: CLINDAMYCIN 300MG IV 50 ML IV SCH (06:46)
[2019-05-20] MEDS: GABAPENTIN 400 MG CAP PO SCH (06:47)
[2019-05-20] MEDS: GABAPENTIN 100 MG CAP PO SCH (06:47)
[2019-05-20] MEDS: ACCU-CHEK COMFORT CURVE STRIP VI SCH (06:47)
[2019-05-20] MEDS: InsuLIN REG 1unit/0.01ml Soln (100units/ml) SC SCH (06:49)
--- NOTE | 2019-05-20 07:30 | NUR ---
Opening Shift Note Assuming care of patient. Patient is awake and alert. Patient shows no signs or symptoms of distress or pain. Bed is locked and lowered with side rails up x2. Instructed patient on the plan of care once patient is awake and alert. Call light within reach. Will continue to round hourly and as needed.
--- NOTE | 2019-05-20 08:58 | NUR ---
AMA to smoke Patient signed AMA at this time. Will go down to smoke in patient's own motorized wheelchair.
[2019-05-20 09:00] VITALS: BP 115/78
[2019-05-20] MEDS ORDERED: cefTRIAXone 1GM/50ML D5W 50 ML IV SCH (09:00)
--- NOTE | 2019-05-20 09:50 | NUR ---
Call from CAITLYN Call from CAITLYN at this time. Patient has left tele box at the security station downstairs.
--- NOTE | 2019-05-20 09:52 | NUR ---
Patient not in room Patient is not in room. All personal belongings are gone. Will notify [employer]'s office. Patient still has IV access.
--- NOTE | 2019-05-20 10:02 | NUR ---
Call to Call to at this time. Patient has been gone approximately one hour and still has the IV intact. 's office to follow up with a wellness check.
--- NOTE | 2019-05-20 10:12 | NUR ---
AMA/Elopement Patient informed nurse that he would be going down to smoke at 0855. Patient has been gone for over an hour now. IV access was not discontinued. Tele box was left at the security desk. All personal belongings were removed from the room by patient. Will notify .
--- NOTE | 2019-05-20 10:16 | NUR ---
Page to Dr. Devlin Page to to notify of patient's elopment. Awaiting callback.
[2019-05-20 10:17] VITALS: BP 115/78
--- NOTE | 2019-05-20 12:33 | NUR ---
Estimated needs: Based on CBW 90.6 kg [id number] (25-27 kcal/kg-wound healing support, multiple P/U) 108-126 g (1.2-1.4 g/kg) Addendum: 05/20/19 at [address] Amended: Links added.
== END 2019-05-20 08:58 | disposition left against medical advice (07) | DRG 871 ==
LOC: ER 10:22 → TELE 10:23 → TELE-CENTR 18:32
PROVIDERS: ADMIT Internal Medicine; ATTEND Internal Medicine
DX: A41.9 Sepsis, unspecified organism (principal); L89.154 Pressure ulcer of sacral region, stage 4; L89.44 Pressure ulcer of contiguous site of back, buttock and hip, stage 4; N30.00 Acute cystitis without hematuria; G82.20 Paraplegia, unspecified; D63.8 Anemia in other chronic diseases classified elsewhere; E11.9 Type 2 diabetes mellitus without complications; E78.5 Hyperlipidemia, unspecified; I10 Essential (primary) hypertension; F32.9 Major depressive disorder, single episode, unspecified; Z53.21 Procedure and treatment not carried out due to patient leaving prior to being seen by health care provider; F17.210 Nicotine dependence, cigarettes, uncomplicated; Z80.6 Family history of leukemia; Z85.118 Personal history of other malignant neoplasm of bronchus and lung; Z86.718 Personal history of other venous thrombosis and embolism; Z85.47 Personal history of malignant neoplasm of testis; Z93.3 Colostomy status; Z88.1 Allergy status to other antibiotic agents; Z88.8 Allergy status to other drugs, medicaments and biological substances; Z88.0 Allergy status to penicillin; Z79.899 Other long term (current) drug therapy
CPT/HCPCS: 36415; 71045; 78582; 80053; 81001; 82962; 83036; 83605; 84484; 85014; 85018; 85025; 85045; 85610; 85652; 85730; 86850; 86900; 86901; 87040; 87081; 87086; 93005; 94761; 96361; 96365; G0378; J0696; J1815; J3490

== ENCOUNTER 2021-08-17 23:33 | Emergency (ER) | payer OTHER, MEDICAID ==
[~2021-08-17] VITALS: Ht 188 cm; Wt 113.4 kg
[~2021-08-17 23:33] MED LIST changes: -ASPI-404 PO; +ASPI-543 PO
[2021-08-18] MEDS ORDERED: MORPHINE SULFATE 4 MG/ML SYR/VIAL IV ONE (08:00)
[2021-08-18] MEDS ORDERED: PROMETHAZINE HCL 25 MG/ML 1ML IV PRN (08:00)
[2021-08-18] MEDS ORDERED: SODIUM CHLORIDE 0.9% 1,000 ML IV ONE (08:00)
[2021-08-18] MEDS ORDERED: SODIUM CHLORIDE 0.9% 500 ML IVB ONE (08:00)
[2021-08-18] MEDS ORDERED: OXYCODONE W/ ACETAMINOPHEN 5/325MG TABLET PO ONE ×3 (08:15→13:15)
[2021-08-18] MEDS ORDERED: OMNIPAQUE ORAL SOLN 500ml 12mg/ml PO ONE (08:20)
[2021-08-18 08:55] LABS: Basophils # (auto) 0.1 10 ^3/uL (0-0.2); Eosinophils # (auto) 0.2 10 ^3/uL (0-0.8); Hemoglobin 9.7 g/dL (13.5-17.5); Mean Corpuscular Hemoglobin 21.9 pg (28.0-32.0); Monocytes % (auto) 7.2 % (0.0-12.0); Nucleated Red Blood Cells % 0.1 %
[2021-08-18 08:56] LABS: Basophils % (auto) 0.6 % (0.0-2.0); Eosinophils % (auto) 1.6 % (0.0-7.0); Hematocrit 31.4 % (41.0-53.0); Lymphocytes % (auto) 19.1 % (10.0-50.0); Mean Corpuscular Volume 70.7 fL (80.0-100.0); Monocytes # (auto) 0.7 10 ^3/uL (0-1.3); Neutrophils # (auto) 7.3 10 ^3/uL (1.6-8.6); Neutrophils % (auto) 71.5 % (37.0-80.0); Red Blood Cells 4.44 10^6/uL (4.5-5.90); Red Cell Distribution Width 21.2 % (11.8-14.3); White Blood Cell 10.3 10^3/uL (4.4-10.8)
[2021-08-18 09:11] LABS: Calcium 7.6 mg/dL (8.5-10.1); Magnesium 1.7 mg/dL (1.6-2.6); Potassium 4.2 mmol/L (3.5-5.1)
[2021-08-18 09:19] LABS: BUN/Creatinine Ratio 30.4; Total Protein 7.4 g/dL (6.4-8.2)
[2021-08-18 09:24] LABS: INR 1.02 (0.9-1.15); Partial Thromboplastin Time 28.8 sec (23.6-33.0)
[2021-08-18 09:32] LABS: Bilirubin, Total 0.1 mg/dL (0.2-1.0)
[2021-08-18 09:35] LABS: Albumin 1.3 g/dL (3.4-5.0)
[2021-08-18 10:30] LABS: Urine Bacteria FEW /hpf (None Seen); Urine Blood Negative /uL (Negative); Urine Budding Yeast FEW /hpf (None Seen); Urine Specific Gravity 1.013 (1.001-1.035); Urine WBC 118 /hpf (0 - 3)
[2021-08-18] MEDS ORDERED: ALBUMIN 25% 100 ML IV ONE (10:30)
[2021-08-18] MEDS ORDERED: IOHEXOL 300 MG/ML 100ML BOTTLE IJ ONE (10:59)
[2021-08-18 14:30] VITALS: BP 111/65
== END 2021-08-18 12:31 | disposition home or self-care (01) ==
LOC: ER 23:35
DX: N39.0 Urinary tract infection, site not specified (principal); M16.0 Bilateral primary osteoarthritis of hip; G82.20 Paraplegia, unspecified; D50.9 Iron deficiency anemia, unspecified; E43 Unspecified severe protein-calorie malnutrition; L89.90 Pressure ulcer of unspecified site, unspecified stage; E03.9 Hypothyroidism, unspecified; E78.5 Hyperlipidemia, unspecified; Z68.32 Body mass index [BMI] 32.0-32.9, adult; Z88.0 Allergy status to penicillin; Z88.1 Allergy status to other antibiotic agents
CPT/HCPCS: 36415; 71045; 74178; 80053; 81001; 83690; 83735; 84443; 85025; 85610; 85730; 87045; 87427; 93005; 96361; 96365; 96366; 99285; J7030; J7040; P9047; Q9967

== ENCOUNTER 2022-01-23 18:52 | Emergency (ER) | payer OTHER, MEDICAID ==
[~2022-01-23] VITALS: Ht 188 cm; Wt 113.4 kg
[2022-01-23 20:11] LABS: Basophils # (auto) 0.1 10 ^3/uL (0-0.2); Eosinophils # (auto) 0.2 10 ^3/uL (0-0.8); Monocytes # (auto) 0.8 10 ^3/uL (0-1.3)
[2022-01-23 20:12] LABS: Basophils % (auto) 0.6 % (0.0-2.0); Eosinophils % (auto) 1.4 % (0.0-7.0); Hematocrit 23.9 % (41.0-53.0); Hemoglobin 7.2 g/dL (13.5-17.5); Lymphocytes # (auto) 1.7 10 ^3/uL (0.4-5.4); Lymphocytes % (auto) 13.1 % (10.0-50.0); Mean Corpuscular Hemoglobin 19.3 pg (28.0-32.0); Mean Corpuscular Hgb Conc. 29.9 g/dL (32.0-36.0); Mean Corpuscular Volume 64.7 fL (80.0-100.0); Monocytes % (auto) 6.6 % (0.0-12.0); Neutrophils # (auto) 9.9 10 ^3/uL (1.6-8.6); Neutrophils % (auto) 78.3 % (37.0-80.0); Red Cell Distribution Width 22.4 % (11.8-14.3); White Blood Cell 12.6 10^3/uL (4.4-10.8)
[2022-01-23 20:30] LABS: Potassium 4.1 mmol/L (3.5-5.1)
[2022-01-23 20:34] LABS: BUN/Creatinine Ratio 22.8; Bilirubin, Total 0.1 mg/dL (0.2-1.0); Total Protein 6.8 g/dL (6.4-8.2)
[2022-01-23 20:45] LABS: Albumin 0.8 g/dL (3.4-5.0); Calcium 5.8 mg/dL (8.5-10.1)
[2022-01-23 20:53] LABS: INR 1.05 (0.9-1.15)
[2022-01-23 21:32] LABS: Magnesium 1.1 mg/dL (1.6-2.6); Phosphorus 5.5 mg/dL (2.5-4.90)
[2022-01-24] MEDS ORDERED: OXYCODONE W/ ACETAMINOPHEN 5/325MG TABLET PO ONE (01:30)
[2022-01-24 02:44] VITALS: BP 112/60
[2022-01-24 03:10] VITALS: BP 115/69
[2022-01-24 03:25] VITALS: BP 121/63
[2022-01-24 04:00] VITALS: BP 128/63
[2022-01-24 05:05] VITALS: BP 117/59
[2022-01-24 07:00] VITALS: BP 123/58
== END 2022-01-24 09:06 | disposition home or self-care (01) ==
LOC: EDBD 18:52 → ER 19:06
DX: E88.09 Other disorders of plasma-protein metabolism, not elsewhere classified (principal); D64.9 Anemia, unspecified; E11.9 Type 2 diabetes mellitus without complications; E78.5 Hyperlipidemia, unspecified; F17.210 Nicotine dependence, cigarettes, uncomplicated; Z79.82 Long term (current) use of aspirin; Z79.899 Other long term (current) drug therapy; Z88.0 Allergy status to penicillin; Z88.1 Allergy status to other antibiotic agents; Z88.8 Allergy status to other drugs, medicaments and biological substances; Z20.822 Contact with and (suspected) exposure to COVID-19
CPT/HCPCS: 36415; 36430; 71045; 80053; 83735; 84100; 84484; 85025; 85610; 85730; 86850; 86900; 86901; 86920; 87426; 87804; 93005; 99285; P9016